=== PATIENT | female | born 1950 | race Caucasian/White ===

== ENCOUNTER 2021-09-25 01:54 | Emergency (ER) | payer MEDICARE ==
[~2021-09-25] VITALS: Ht 172.7 cm; Wt 90.7 kg
== END 2021-09-25 03:46 | disposition home or self-care (01) ==
LOC: ER 02:07
DX: Z46.6 Encounter for fitting and adjustment of urinary device (principal); R50.9 Fever, unspecified; I10 Essential (primary) hypertension; E11.9 Type 2 diabetes mellitus without complications; E78.5 Hyperlipidemia, unspecified; J44.9 Chronic obstructive pulmonary disease, unspecified
CPT/HCPCS: 99283